=== PATIENT | male | born 2005 | race Two or more races ===

== ENCOUNTER 2023-06-01 23:33 | Emergency (ER) | payer BC ==
[~2023-06-01] VITALS: Ht 190.5 cm; Wt 120.2 kg
== END 2023-06-02 01:40 | disposition home or self-care (01) ==
LOC: ER 23:34 → EMR PED 23:34
DX: L55.9 Sunburn, unspecified (principal)

== ENCOUNTER 2023-06-02 16:54 | Emergency (ER) | payer BC ==
[~2023-06-02] VITALS: Ht 182.9 cm; Wt 90.7 kg
[2023-06-02] MEDS ORDERED: CEFTRIAXONE SODIUM 1,000 MG VIAL IM STA ×2 (17:32→17:37)
[2023-06-02] MEDS ORDERED: SILVER SULFADIAZINE 50 GM JAR TOP STA (17:35)
== END 2023-06-02 18:55 | disposition home or self-care (01) ==
LOC: EMR PED 16:54 → ER 16:54 → EMR PED 18:44
DX: L55.9 Sunburn, unspecified (principal)